=== PATIENT | female | born 1990 | race African-American/Black ===

== ENCOUNTER 2021-12-30 09:15 | Emergency (ER) | payer OTHER, SELFPAY ==
[2021-12-30 09:43] VITALS: BP 120/74; PULSE 79; RESP 14; TEMP 36.1; O2SAT 100; BMI 26.4
== END 2021-12-30 15:19 | disposition left against medical advice (07) ==
PROVIDERS: Emergency Provider Emergency Medicine
CPT/HCPCS: 99281